=== PATIENT | female | born 1945 | race Caucasian/White ===

== ENCOUNTER 2021-06-07 04:33 | Day surgery (SDC) | payer OTHER, BC ==
[2021-06-06 14:46] VITALS: BMI 25.2
[2021-06-07 10:27] VITALS: TEMP 97.5
[2021-06-07 12:42] VITALS: BP 143/59; PULSE 57
== END 2021-06-07 11:19 | disposition home or self-care (01) ==
LOC: JASU-ENDO 04:33
PROVIDERS: ATTEND Internal Medicine Gastroenterology
PROC: 0DJD8ZZ Inspection of Lower Intestinal Tract, Via Natural or Artificial Opening Endoscopic (ICD-10-PCS; principal; 2021-06-07 09:45)
DX: Z12.11 Encounter for screening for malignant neoplasm of colon (principal); K57.30 Diverticulosis of large intestine without perforation or abscess without bleeding; K64.8 Other hemorrhoids

== ENCOUNTER 2022-01-06 10:58 | Day surgery (SDC) | payer OTHER, BC ==
[2022-01-06] MEDS ORDERED: DENOSUMAB 60 MG/ML DISP.SYRIN SQ ONE (11:30)
[2022-01-06 11:52] VITALS: BP 123/62; PULSE 78; TEMP 98.2
== END 2022-01-06 11:54 | disposition home or self-care (01) ==
LOC: FINFUSION 10:58 → FM/S 10:59 → FINFUSION 11:54
PROVIDERS: ATTEND Internal Medicine Endocrinology, Diabetes & Metabolism
PROC: 3E013GC Introduction of Other Therapeutic Substance into Subcutaneous Tissue, Percutaneous Approach (ICD-10-PCS; principal; 2022-01-06)
DX: M81.0 Age-related osteoporosis without current pathological fracture (principal); M85.80 Other specified disorders of bone density and structure, unspecified site; E03.9 Hypothyroidism, unspecified
CPT/HCPCS: 96372; J0897

== ENCOUNTER 2022-02-28 04:46 | Day surgery (SDC) | payer OTHER, BC ==
[2022-02-26 10:59] VITALS: BMI 24.8
[2022-02-28 08:34] VITALS: TEMP 97.1
[2022-02-28 09:15] VITALS: BP 119/60; PULSE 55
[2022-02-28 09:53] LABS: BASO % 0.7 % (0-2.0); EOS % 4.4 % (0-4.5); HEMATOCRIT 37.6 % (32.4-45.2); HEMOGLOBIN 12.5 GM/dL (10.7-15.3); LYMPH % 25.9 % (8-40); MCH 28.8 pg (25.7-33.7); MCHC 33.2 g/dl (32.0-36.0); MEAN CELL VOLUME 86.9 fl (80-96); MEAN PLT VOLUME 6.8 fl (7.5-11.1); MONO % 6.3 % (3.8-10.2); NEUT % 62.7 % (42.8-82.8); PLATELET COUNT 274 10^3/uL (134-434); RBC 4.33 M/mm3 (3.60-5.2); RDW 17.9 % (11.6-15.6); RETICULOCYTES 1.13 % (0.5-1.5); WHITE BLOOD COUNT 6.1 K/mm3 (4.0-10.0)
[2022-02-28 10:03] LABS: CHLORIDE 109 mmol/L (98-107); SODIUM 140 mmol/L (136-145)
[2022-02-28 10:06] LABS: CALCIUM 7.9 mg/dL (8.5-10.1)
[2022-02-28 10:07] LABS: ALBUMIN 3.5 g/dl (3.4-5.0); ANION GAP 8 MMOL/L (8-16); BLOOD UREA NITROGEN 7.4 mg/dL (7-18); CO2 23 mmol/L (21-32); GLUCOSE,RANDOM 135 mg/dL (74-106)
[2022-02-28 10:09] LABS: CREATININE 0.7 mg/dL (0.55-1.3); IRON SERUM 102 ug/dL (50-175); SGOT/AST 22 U/L (15-37); SGPT/ALT 26 U/L (13-61); TOTAL IRON BINDING CAPACITY 361 ug/dL (250-450)
[2022-02-28 10:10] LABS: BILIRUBIN,TOTAL 0.4 mg/dL (0.2-1)
[2022-02-28 10:12] LABS: ALK PHOS 60 U/L (45-117)
== END 2022-02-28 10:14 | disposition home or self-care (01) ==
LOC: JASU-ENDO 04:46
PROVIDERS: ATTEND Internal Medicine Gastroenterology
PROC: 0DB78ZX Excision of Stomach, Pylorus, Via Natural or Artificial Opening Endoscopic, Diagnostic (ICD-10-PCS; 2022-02-28)
PROC: 0DB68ZX Excision of Stomach, Via Natural or Artificial Opening Endoscopic, Diagnostic (ICD-10-PCS; 2022-02-28)
PROC: 0DB98ZX Excision of Duodenum, Via Natural or Artificial Opening Endoscopic, Diagnostic (ICD-10-PCS; principal; 2022-02-28 08:30)
DX: D50.9 Iron deficiency anemia, unspecified (principal); K31.7 Polyp of stomach and duodenum; K44.9 Diaphragmatic hernia without obstruction or gangrene; K29.50 Unspecified chronic gastritis without bleeding
CPT/HCPCS: 36415; 80053; 82728; 82784; 83540; 83550; 84155; 84165; 85025; 85045; 86140; 86334; 88305-TC; 88342-TC

== ENCOUNTER 2022-07-07 09:50 | Day surgery (SDC) | payer OTHER, BC ==
[2022-07-07] MEDS ORDERED: DENOSUMAB 60 MG/ML DISP.SYRIN SQ ONE (10:15)
[2022-07-07 10:19] VITALS: BP 128/61; PULSE 63; RESP 16; TEMP 99
== END 2022-07-07 10:25 | disposition home or self-care (01) ==
LOC: FINFUSION 09:50 → FM/S 09:54 → FINFUSION 10:25
PROVIDERS: ATTEND Internal Medicine Endocrinology, Diabetes & Metabolism
PROC: 3E013GC Introduction of Other Therapeutic Substance into Subcutaneous Tissue, Percutaneous Approach (ICD-10-PCS; principal; 2022-07-07)
DX: M81.0 Age-related osteoporosis without current pathological fracture (principal)
CPT/HCPCS: 96365; J0897

== ENCOUNTER 2023-01-12 11:44 | Day surgery (SDC) | payer OTHER, BC ==
[2023-01-12] MEDS ORDERED: DENOSUMAB 60 MG/ML DISP.SYRIN SQ ONE (12:00)
[2023-01-12 12:28] VITALS: BP 113/54; PULSE 74; RESP 17; TEMP 98.4
== END 2023-01-12 12:29 | disposition home or self-care (01) ==
LOC: FINFUSION 11:44 → FM/S 11:45 → FINFUSION 12:29
PROVIDERS: ATTEND Internal Medicine Endocrinology, Diabetes & Metabolism
PROC: 3E013GC Introduction of Other Therapeutic Substance into Subcutaneous Tissue, Percutaneous Approach (ICD-10-PCS; principal; 2023-01-12)
DX: M81.0 Age-related osteoporosis without current pathological fracture (principal)
CPT/HCPCS: 96372; J0897

== ENCOUNTER 2023-11-06 13:22 | Emergency (ER) | payer OTHER, BC ==
[2023-11-06 13:38] VITALS: TEMP 99.1; BMI 24.4
[2023-11-06] MEDS ORDERED: ACETAMINOPHEN 1000 MG/100 ML BAG IVPB ONE (14:18)
[2023-11-06] MEDS ORDERED: SODIUM CHLORIDE 0.9% 500 ML INFUS.BAG IV ONE (14:18)
[2023-11-06] MEDS ORDERED: ACETAMINOPHEN INJECTION 100 ML IVPB ONE (14:27)
[2023-11-06 14:55] LABS: HEMATOCRIT 40.4 % (32.4-45.2); HEMOGLOBIN 13.4 G/dL (10.7-15.3); MCH 30.3 pg (25.7-33.7); MCHC 33.3 g/dl (32.0-36.0); MEAN CELL VOLUME 91.2 fl (80-96); MEAN PLT VOLUME 7.3 fl (7.5-11.1); PLATELET COUNT 316.2 10^3/uL (134-434); RBC 4.43 10^6/uL (3.60-5.2); RDW 14.8 % (11.6-15.6); WHITE BLOOD COUNT 6.3 10^3/uL (4.0-10.8)
[2023-11-06 15:04] LABS: ALBUMIN 4.1 g/dl (3.4-5.0); ALK PHOS 50 U/L (45-117); ANION GAP 8 mmol/L (4-13); BILIRUBIN,TOTAL 0.5 mg/dl (0.2-1); CALCIUM 9.4 mg/dl (8.5-10.1); CHLORIDE 104 mmol/L (98-107); CO2 23 mmol/L (21-32); CREATININE 0.6 mg/dl (0.6-1.3); GLUCOSE,RANDOM 93 mg/dl (74-106); POTASSIUM 4.1 mmol/L (3.5-5.1); SGOT/AST 18 U/L (15-37); SGPT/ALT 18 U/L (7-52); SODIUM 135 mmol/L (136-145); TOT PROT 6.7 g/dl (6.4-8.2)
[2023-11-06 15:45] LABS: EPITHELIAL CELLS 0-5 /hpf
[2023-11-06 15:50] LABS: PLATELET ESTIMATE ADEQUATE
[2023-11-06 16:01] VITALS: BP 152/61; PULSE 79; RESP 16
== END 2023-11-06 16:00 | disposition home or self-care (01) ==
LOC: FER 13:22
DX: R42 Dizziness and giddiness (principal)
CPT/HCPCS: 36415; 70450-TC; 71045-TC-FY; 73110-TC-LT-FY; 73110-TC-RT-FY; 73130-TC-LT-FY; 73130-TC-RT-FY; 80053; 81003; 81015; 84484; 85027; 87086; 93005; 99285-25

== ENCOUNTER 2024-01-15 11:05 | Day surgery (SDC) | payer OTHER, BC ==
[2024-01-15] MEDS: DENOSUMAB 60 MG/ML DISP.SYRIN SQ ONE (11:19)
[2024-01-15 11:30] VITALS: BP 135/78; PULSE 78; RESP 16; TEMP 98
== END 2024-01-15 11:33 | disposition home or self-care (01) ==
LOC: FINFUSION 11:05 → FM/S 11:10 → FINFUSION 11:33
PROVIDERS: ATTEND Internal Medicine Endocrinology, Diabetes & Metabolism
PROC: 3E013GC Introduction of Other Therapeutic Substance into Subcutaneous Tissue, Percutaneous Approach (ICD-10-PCS; principal; 2024-01-15)
DX: M81.0 Age-related osteoporosis without current pathological fracture (principal)
CPT/HCPCS: 96372; J0897

== ENCOUNTER 2024-07-10 10:55 | Day surgery (SDC) | payer OTHER, BC ==
[2024-07-10] MEDS: DENOSUMAB 60 MG/ML DISP.SYRIN SQ ONE (11:26)
[2024-07-10 11:32] VITALS: BP 132/74; PULSE 70; RESP 19; TEMP 98.8
== END 2024-07-10 11:34 | disposition home or self-care (01) ==
LOC: FINFUSION 10:55 → FM/S 10:59 → FINFUSION 11:34
PROVIDERS: ATTEND Internal Medicine Endocrinology, Diabetes & Metabolism
PROC: 3E033GC Introduction of Other Therapeutic Substance into Peripheral Vein, Percutaneous Approach (ICD-10-PCS; principal; 2024-07-10)
DX: M81.0 Age-related osteoporosis without current pathological fracture (principal)
CPT/HCPCS: 96365; J0897